=== PATIENT | male | born 1980 | race Caucasian/White ===

== ENCOUNTER 2016-10-24 09:56 | Emergency (ER) | payer SELFPAY ==
[2016-10-24] MEDS ORDERED: HYDROcodone/Acetaminophen 10/325 mg Tablet ONE (10:16)
[2016-10-24] MEDS ORDERED: Sulfameth/Trimethoprim DS 800-160mg TAB ONE (10:17)
[2016-10-24] MEDS ORDERED: Ibuprofen 800 MG TAB ONE (10:17)
== END 2016-10-24 10:20 | disposition home or self-care (01) ==
LOC: BURERS 09:56
DX: L73.9 Follicular disorder, unspecified (principal); F41.9 Anxiety disorder, unspecified; F17.210 Nicotine dependence, cigarettes, uncomplicated
CPT/HCPCS: 99283

== ENCOUNTER 2017-01-14 16:53 | Emergency (ER) | payer SELFPAY ==
[2017-01-14] MEDS ORDERED: Clindamycin 150 MG CAP ONE (17:20)
[2017-01-14] MEDS ORDERED: HYDROcodone/Acetaminophen 10/325 mg Tablet ONE (17:21)
== END 2017-01-14 17:36 | disposition home or self-care (01) ==
LOC: BURERS 16:53
DX: K08.89 Other specified disorders of teeth and supporting structures (principal); F17.210 Nicotine dependence, cigarettes, uncomplicated
CPT/HCPCS: 99282

== ENCOUNTER 2017-07-30 09:03 | Emergency (ER) | payer SELFPAY ==
[2017-07-30] MEDS ORDERED: HYDROcodone/Acetaminophen 10/325 mg Tablet ONE (09:26)
[2017-07-30] MEDS ORDERED: Clindamycin 150 MG CAP ONE (09:26)
== END 2017-07-30 09:32 | disposition home or self-care (01) ==
LOC: BURERS 09:03
DX: K02.9 Dental caries, unspecified (principal); F31.9 Bipolar disorder, unspecified; F41.9 Anxiety disorder, unspecified; F17.210 Nicotine dependence, cigarettes, uncomplicated
CPT/HCPCS: 99282

== ENCOUNTER 2018-01-09 11:32 | Emergency (ER) | payer SELFPAY ==
[2018-01-09] MEDS ORDERED: Ondansetron HCl/PF 4 MG/2 ML Vial ONE (12:15)
[2018-01-09] MEDS ORDERED: Ketorolac Tromethamine 30 MG/ML VIAL ONE (12:15)
[2018-01-09 12:16] LABS: #Basophils 0.1 thou/uL (0.0-0.2); #Lymphocytes 2.7 thou/uL (1.20-3.40); #Monocytes 1.4 thou/uL (0.11-0.59); %Basophils 1.2 % (0.0-1.0); %Eosinophils 0.4 % (0.0-10.0); %Lymphocytes 26.1 % (21.0-51.0); %Monocytes 13.6 % (0.0-10.0); %Neutrophils 58.6 % (42.0-75.0); Hemoglobin 15.8 g/dL (14.0-18.0); Mean Corpuscular HGB CONC 34.1 g/dL (32.0-36.0); Mean Corpuscular Hemoglobin 29.5 pg (27.0-31.0); Mean Corpuscular Volume 86.4 fL (78.0-98.0); Mean Platelet Volume 10.3 fL (7.4-10.4); Platelet Count 300 thou/uL (130-400); RBC Distribution Width 11.3 % (11.5-14.5); Red Blood Cell (RBC) Count 5.35 mill/uL (4.70-6.10); White Blood Cell (WBC) Count 10.2 thou/uL (4.8-10.8)
[2018-01-09 12:34] LABS: ALT (SGPT) 42 U/L (8-55); AST (SGOT) 28 U/L (5-34); Albumin 4.7 g/dL (3.5-5.0); Alkaline Phosphatase 82 U/L (40-150); Anion Gap 16 mmol/L (10-20); BUN (Urea Nitrogen) 18 mg/dL (8.9-20.6); Bilirubin, Total 1.3 mg/dL (0.2-1.2); Calc. Creatinine Clearance 0 mL/min (70-130); Calcium 11.6 mg/dL (7.8-10.44); Carbon Dioxide 25 mmol/L (22-29); Chloride 103 mmol/L (98-107); Estimated GFR-MDRD 61; Globulin 3.5 g/dL (2.4-3.5); Glucose 108 mg/dL (70-105); Lipase 9 U/L (8-78); Potassium 3.6 mmol/L (3.5-5.1); Protein, Total 8.2 g/dL (6.0-8.3); Sodium 140 mmol/L (136-145)
[2018-01-09] MEDS ORDERED: Pantoprazole 40 MG VIAL ONE (12:49)
[2018-01-09] MEDS ORDERED: HYDROcodone/Acetaminophen 10/325 mg Tablet ONE (13:00)
[2018-01-09] MEDS ORDERED: Clindamycin 150 MG CAP ONE (13:00)
== END 2018-01-09 13:12 | disposition home or self-care (01) ==
LOC: BURERS 11:32
DX: K08.89 Other specified disorders of teeth and supporting structures (principal); R11.2 Nausea with vomiting, unspecified; F31.9 Bipolar disorder, unspecified; F17.210 Nicotine dependence, cigarettes, uncomplicated
CPT/HCPCS: 80053; 83690; 85025; 87081; 87430; 96361; 96374; 96375; C9113; J1885; J2405

== ENCOUNTER 2018-06-02 15:34 | Emergency (ER) | payer SELFPAY | END 2018-06-02 16:08 | disposition home or self-care (01) | LOC: BURERS 15:34 | DX: H92.01 Otalgia, right ear (principal); K02.9 Dental caries, unspecified; M54.9 Dorsalgia, unspecified; F31.9 Bipolar disorder, unspecified; F17.210 Nicotine dependence, cigarettes, uncomplicated | CPT/HCPCS: 99281 ==

== ENCOUNTER 2019-02-16 18:24 | Emergency (ER) | payer SELFPAY | END 2019-02-16 19:13 | disposition home or self-care (01) | LOC: BURERS 18:24 | DX: J11.1 Influenza due to unidentified influenza virus with other respiratory manifestations (principal); F17.210 Nicotine dependence, cigarettes, uncomplicated; F31.9 Bipolar disorder, unspecified ==

== ENCOUNTER 2019-07-01 08:48 | Emergency (ER) | payer SELFPAY ==
[2019-07-01] MEDS ORDERED: Ondansetron ODT 4 MG TAB ONE (09:13)
== END 2019-07-01 09:23 | disposition home or self-care (01) ==
LOC: BURERS 08:48
DX: K29.00 Acute gastritis without bleeding (principal); F31.9 Bipolar disorder, unspecified; F17.210 Nicotine dependence, cigarettes, uncomplicated
CPT/HCPCS: 99283; Q0162

== ENCOUNTER 2020-08-03 02:35 | Emergency (ER) | payer OTHER, SELFPAY ==
[2020-08-03] MEDS ORDERED: Lidocaine 2% w/Epinephrine 1:200K 20 ML VIAL ONE (03:01)
[2020-08-03] MEDS ORDERED: Bacitracin 1 PK ONE (03:04)
[2020-08-03] MEDS ORDERED: Acetaminophen 500 MG TAB ONE (03:05)
== END 2020-08-03 03:25 | disposition home or self-care (01) ==
LOC: BURERS 02:35
DX: S81.852A Open bite, left lower leg, initial encounter (principal); F17.210 Nicotine dependence, cigarettes, uncomplicated; W54.0XXA Bitten by dog, initial encounter; Z71.6 Tobacco abuse counseling
CPT/HCPCS: 99406

== ENCOUNTER 2020-12-10 17:07 | Emergency (ER) | payer SELFPAY | END 2020-12-10 18:07 | disposition home or self-care (01) | LOC: BURERS 17:07 | DX: L03.311 Cellulitis of abdominal wall (principal); F17.210 Nicotine dependence, cigarettes, uncomplicated; Z79.899 Other long term (current) drug therapy | CPT/HCPCS: 99283 ==

== ENCOUNTER 2021-01-07 11:45 | Emergency (ER) | payer SELFPAY ==
[2021-01-07] MEDS ORDERED: predniSONE 20 MG TAB ONE (12:22)
[2021-01-07] MEDS ORDERED: HYDROcodone/Acetaminophen 5/325 mg Tablet ONE (12:22)
== END 2021-01-07 12:15 | disposition home or self-care (01) ==
LOC: BURERS 11:45
DX: M54.12 Radiculopathy, cervical region (principal); F17.210 Nicotine dependence, cigarettes, uncomplicated; Z79.899 Other long term (current) drug therapy
CPT/HCPCS: 99283; J7512